=== PATIENT | male | born 1975 | race African-American/Black ===

== ENCOUNTER 2018-09-06 10:38 | Emergency (ER) | payer SELFPAY ==
[2018-09-06 10:39] VITALS: BP 147/83; PULSE 80; RESP 12; TEMP 36.6; O2SAT 98; BMI 28.1
--- NOTE | 2018-09-06 10:55 | ED.DCSUM_ITS ---
- ER Visit Summary Date of Service: 09/06/18 Chief Complaint: Cough congestion History of Present Illness: The patient is a 43 M with about 10-day history of cough congestion sinus pressure and now having a productive cough. Is a smoker. No fever or chills. Physical Examination: Not appear in acute distress. Moist mucous membranes, no obvious facial deformity. There is rhinorrhea and sinus tenderness swollen beefy red nasal turbinates and bilateral otitis media. No C-spine tenderness supple neck. Regular rate and rhythm without any obvious murmurs Some bronchial breath sounds with clear lungs bilaterally speaking in full sentences without any obvious respiratory distress Abdomen soft and nontender no guarding or rebound Moves all extremities without any difficulty or pain. Skin does not show any obvious rashes or lesions, no trauma. Alert oriented ?3 with no gross focal deficit Emergency Department Course and Treatment: [Patient has sinusitis, per his history it has been about 10 days thus he meets CDC criteria for antibiotics he will receive an albuterol for likely bronchitis that started secondary to the sinusitis as well as his smoking, otherwise he will be discharged in stable condition] Discharge stable condition Impression: Sinusitis Bronchitis This note was generated with [employer] dictation software. It may contain incorrect words, spelling, and punctuation that were not noted in review of the chart prior to signing ED Disposition - Plan for ED Patient: Disposition: Home or Assisted Living Chief Complaint: Cough Instructions: ED Upper Resp Infec Abx Tx Prescriptions: Albuterol IH (ProAir) [Proair Hfa (SP)Vent Pts] 1 puff INHALATION Q4H PRN PRN #1 inhaler PRN Reason: Wheezing Azithromycin 250 mg PO DAILY #4 tab
[2018-09-06 11:01] VITALS: O2SAT 96
[2018-09-06] MEDS: Azithromycin 250 MG Tablet 500 MG PO (11:16)
[2018-09-06] MEDS: Triamcinolone Acetonide 40 MG/ML Vial IM (11:20)
[2018-09-06] MEDS: Ipratropium/Albuterol Sulfate 3 ML AMPUL.NEB INHALATION (11:36)
[2018-09-06 11:39] VITALS: PULSE 99; RESP 12
[2018-09-06 11:47] VITALS: BP 140/78; PULSE 84; RESP 18; O2SAT 98
--- NOTE | 2018-09-07 11:53 | ED.RN ---
Pt called requesting replacement of zithromax rx. Called to [facility] per patient request. Zithromax 250mg daily #4 called to
== END 2018-09-06 11:47 | disposition home or self-care (01) ==
PROVIDERS: Emergency Provider Emergency Medicine
DX: J32.9 Chronic sinusitis, unspecified (principal); J40 Bronchitis, not specified as acute or chronic; F17.200 Nicotine dependence, unspecified, uncomplicated
CPT/HCPCS: 94640; 96372; 99283

== ENCOUNTER 2019-01-11 14:25 | Emergency (ER) | payer MEDICAID, SELFPAY ==
[2019-01-11 14:25] VITALS: BP 125/81; PULSE 71; RESP 16; TEMP 36.8; O2SAT 99; BMI 27.6
--- NOTE | 2019-01-11 14:50 | ED.VISSUMM ---
- ER Visit Summary Date of Service: 01/11/19 Chief Complaint: Right shoulder pain History of Present Illness: The patient is a 43 M presenting for evaluation secondary to right shoulder pain. Patient reports over the course of the last 1 year he has been dealing with shoulder pain in his right arm. He states that it was somewhat worse when he woke up today. Has been associated with any sort of injuries. Patient denies any fevers, recent surgeries or injections night sweats or unintended weight loss. Physical Examination: Upper extremity exam shows no real reproducible tenderness to palpation, no evidence of warmth erythema or joint effusion. Patient has some pain with range of motion of the shoulder, no evidence of laxity with stressing of the rotator cuff. Test Results: None indicated Emergency Department Course and Treatment: Patient presented due to concern for shoulder pain. Physical exam seems most consistent with rotator cuff strain. Patient was placed on a course of Mobic and was given follow-up with orthopedics due to the chronicity of this issue. Disposition: Discharge Impression: 1. Right rotator cuff strain This note was generated with [employer] dictation software. It may contain incorrect words, spelling, and punctuation that were not noted in review of the chart prior to signing ED Disposition - Plan for ED Patient: Disposition: Home or Assisted Living Diagnosis: Rotator cuff strain Instructions: ED Sprain Shoulder Prescriptions: Meloxicam [Mobic] 7.5 mg PO DAILY #20 tab Referrals: Von Munoz MD [STAFF PHYSICIAN] - 1 Week if not improving
== END 2019-01-11 15:27 | disposition home or self-care (01) ==
PROVIDERS: Emergency Provider Emergency Medicine
DX: S46.011A Strain of muscle(s) and tendon(s) of the rotator cuff of right shoulder, initial encounter (principal); X58.XXXA Exposure to other specified factors, initial encounter; Y93.9 Activity, unspecified; Y92.9 Unspecified place or not applicable; Z72.0 Tobacco use
CPT/HCPCS: 99282

== ENCOUNTER 2019-05-08 09:13 | Emergency (ER) | payer MEDICAID, SELFPAY ==
[2019-05-08 09:14] VITALS: BP 135/84; PULSE 87; RESP 17; TEMP 36.8; O2SAT 98; BMI 26.7
--- NOTE | 2019-05-08 09:43 | ED.DCSUM_ITS ---
- ER Visit Summary Date of Service: 05/08/19 Chief Complaint: Hand laceration History of Present Illness: The patient is a 43 M who cut his right hand on a broken glass while doing dishes last night. He is right-hand dominant. Tetanus shot was less than 5 years ago. He denies weakness or paresthesias. Physical Examination: Vital signs unremarkable. Patient sitting upright in bed no acute distress. Right upper extremity examination there is a 3 cm laceration on the lateral acid of the right hand just proximal to the index MCP joint. He has full range of motion of all digits. He has normal cap refill and sensation distally. Test Results: [] Emergency Department Course and Treatment: Wound is anesthetized with 4 cc 1% lidocaine locally. Wound is irrigated and cleansed. Skin is closed with 5 simple interrupted sutures of 5-0 nylon. Dressing is applied and wound care as discussed. Patient is to have sutures removed in 1 week. Treatment Plan: [] Disposition: Discharge Impression: Right hand laceration status post suture This note was generated with [employer] dictation software. It may contain incorrect words, spelling, and punctuation that were not noted in review of the chart prior to signing ED Disposition - Plan for ED Patient: Disposition: Home or Assisted Living Instructions: ED Laceration Hand Referrals: [facility] Doctor,Out of [Primary Care Provider] - 7 Days for suture removal
== END 2019-05-08 11:06 | disposition home or self-care (01) ==
PROVIDERS: Emergency Provider Emergency Medicine
DX: S61.411A Laceration without foreign body of right hand, initial encounter (principal); W25.XXXA Contact with sharp glass, initial encounter; Y93.9 Activity, unspecified; Y92.9 Unspecified place or not applicable; Z72.0 Tobacco use
CPT/HCPCS: 12002; 99283